=== PATIENT | female | born 1985 | race Asian ===

== ENCOUNTER 2019-03-07 12:26 | Emergency (ER) | payer OTHER ==
[~2019-03-07] VITALS: Ht 154.9 cm; Wt 69.4 kg
[2019-03-07 12:49] VITALS: BP 104/71; Ht 154.9 cm; Wt 69.4 kg
== END 2019-03-07 14:36 | disposition home or self-care (01) ==
LOC: ED 12:26
DX: J06.9 Acute upper respiratory infection, unspecified (principal)